=== PATIENT | male | born 1975 | race Caucasian/White ===

== ENCOUNTER 2018-06-09 13:52 | Emergency (ER) | payer MEDICAID ==
[~2018-06-09] VITALS: Ht 172.7 cm; Wt 70.0 kg
[~2018-06-09 13:52] MED LIST: CETI1TAB PO; FLUT16SP13 INH; IBUP-1986 PO; PSEU-250 PO
[2018-06-09] MEDS ORDERED: ketorolac trometh inj. 60 MG/2 ML VIAL IM ONE (15:30)
[2018-06-09] MEDS ORDERED: HYDROcodone/acetaminophen 10/325mg tab PO ONE (15:35)
[2018-06-09] MEDS ORDERED: CYCL-1 PO (15:44)
[2018-06-09] MEDS ORDERED: IBUP-1984 PO (15:44)
[2018-06-09 16:34] VITALS: BP 123/75
== END 2018-06-09 16:35 | disposition home or self-care (01) ==
LOC: ER 13:52
DX: M54.6 Pain in thoracic spine (principal); Z88.5 Allergy status to narcotic agent; Z79.899 Other long term (current) drug therapy
CPT/HCPCS: 96372; 99283; J1885

== ENCOUNTER 2018-12-15 14:23 | Emergency (ER) | payer MEDICAID ==
[~2018-12-15] VITALS: Ht 172.7 cm; Wt 72.7 kg
[~2018-12-15 14:23] MED LIST changes: +CYCL-1 PO
[2018-12-15 14:26] VITALS: BP 129/45
[2018-12-15] MEDS ORDERED: HYDROcodone/acetaminophen 10/325mg tab PO ONE (15:10)
[2018-12-15] MEDS ORDERED: ketorolac trometh inj. 60 MG/2 ML VIAL IM ONE (15:10)
[2018-12-15] MEDS ORDERED: NAPR-56 PO (15:11)
== END 2018-12-15 15:31 | disposition home or self-care (01) ==
LOC: ER 14:23
DX: S83.8X1A Sprain of other specified parts of right knee, initial encounter (principal); S80.211A Abrasion, right knee, initial encounter; Z79.899 Other long term (current) drug therapy; Z88.5 Allergy status to narcotic agent; X50.1XXA Overexertion from prolonged static or awkward postures, initial encounter; Y93.01 Activity, walking, marching and hiking; Y92.89 Other specified places as the place of occurrence of the external cause; Y99.9 Unspecified external cause status
CPT/HCPCS: 29505; 73564; 96372; 99284; J1885

== ENCOUNTER 2018-12-30 01:11 | Emergency (ER) | payer MEDICAID ==
[~2018-12-30] VITALS: Ht 172.7 cm; Wt 62.7 kg
[~2018-12-30 01:11] MED LIST changes: +NAPR-56 PO
[2018-12-30 01:16] VITALS: BP 164/101
[2018-12-30] MEDS ORDERED: AMOXICILLIN PO (01:58)
[2018-12-30] MEDS ORDERED: HYDR-4353 PO (02:00)
== END 2018-12-30 02:09 | disposition home or self-care (01) ==
LOC: ER 01:11
DX: K08.89 Other specified disorders of teeth and supporting structures (principal); Z88.6 Allergy status to analgesic agent
CPT/HCPCS: 99283

== ENCOUNTER 2019-01-11 13:21 | Outpatient (CLI) | payer MEDICAID ==
[2019-01-11 13:18] VITALS: BP 142/91
[~2019-01-11 13:21] MED LIST changes: +AMOXICILLIN PO; -CETI1TAB PO; -CYCL-1 PO; -FLUT16SP13 INH; +HYDR-4353 PO; -PSEU-250 PO
== END 2019-01-11 14:02 | disposition home or self-care (01) ==
LOC: ORTHO 13:21
PROVIDERS: ATTEND Nurse Practitioner Family
DX: S83.412A Sprain of medial collateral ligament of left knee, initial encounter (principal); S83.511A Sprain of anterior cruciate ligament of right knee, initial encounter; Z88.5 Allergy status to narcotic agent; Z79.899 Other long term (current) drug therapy; W01.0XXA Fall on same level from slipping, tripping and stumbling without subsequent striking against object, initial encounter; Y93.89 Activity, other specified; Y92.89 Other specified places as the place of occurrence of the external cause; Y99.8 Other external cause status
CPT/HCPCS: 99213

== ENCOUNTER 2019-01-22 11:31 | Emergency (ER) | payer MEDICAID ==
[~2019-01-22] VITALS: Ht 170.2 cm; Wt 72.7 kg
[~2019-01-22 11:31] MED LIST changes: -NAPR-56 PO
[2019-01-22 11:42] VITALS: BP 154/78
[2019-01-22] MEDS ORDERED: ondansetron 4mg rapidly disintigrating tab PO ONE (11:50)
[2019-01-22] MEDS ORDERED: LIDOcaine 1% w/epiNEPHrine 1:200,000 30ml vial IM ONE (11:50)
[2019-01-22] MEDS ORDERED: TETanus/Pertussis (Acell)/Diphther VAC/PF (Tdap-Adult) 0.5ml syringe IM ONE (11:50)
[2019-01-22] MEDS ORDERED: LORazepam 1 MG tablet PO ONE (13:10)
[2019-01-22] MEDS ORDERED: CEPH-572 PO (14:22)
[2019-01-22] MEDS ORDERED: HYDR-3965 PO (14:22)
[2019-01-22] MEDS ORDERED: ceFAZolin 1gm IM kit IM ONE (14:25)
== END 2019-01-22 14:48 | disposition home or self-care (01) ==
LOC: ER 11:31
DX: S61.314A Laceration without foreign body of right ring finger with damage to nail, initial encounter (principal); S61.212A Laceration without foreign body of right middle finger without damage to nail, initial encounter; Z56.0 Unemployment, unspecified; Z88.6 Allergy status to analgesic agent; W28.XXXA Contact with powered lawn mower, initial encounter; Y93.89 Activity, other specified; Y92.89 Other specified places as the place of occurrence of the external cause; Y99.8 Other external cause status
CPT/HCPCS: 11730; 12001; 73130; 90471; 90715; 96372; 99284; J0690; J3490

== ENCOUNTER 2019-01-25 08:53 | Emergency (ER) | payer MEDICAID ==
[~2019-01-25] VITALS: Ht 172.7 cm; Wt 72.7 kg
[~2019-01-25 08:53] MED LIST changes: +CEPH-572 PO; +HYDR-3965 PO
[2019-01-25 09:07] VITALS: BP 145/111
[2019-01-25] MEDS ORDERED: HYDR-4353 PO (09:09)
[2019-01-25] MEDS ORDERED: HYDROcodone/acetaminophen 10/325mg tab PO ONE (09:10)
[2019-01-25] MEDS ORDERED: ketorolac trometh inj. 60 MG/2 ML VIAL IM ONE (09:10)
== END 2019-01-25 09:18 | disposition home or self-care (01) ==
LOC: ER 08:53
DX: S61.212D Laceration without foreign body of right middle finger without damage to nail, subsequent encounter (principal); S61.214D Laceration without foreign body of right ring finger without damage to nail, subsequent encounter; F17.200 Nicotine dependence, unspecified, uncomplicated; Z88.5 Allergy status to narcotic agent; Z79.899 Other long term (current) drug therapy; Z56.0 Unemployment, unspecified; W31.89XD Contact with other specified machinery, subsequent encounter
CPT/HCPCS: 99283

== ENCOUNTER 2019-01-26 14:30 | Outpatient (CLI) | payer MEDICAID | END 2019-01-26 23:59 | disposition home or self-care (01) | LOC: RAD 14:30 | PROVIDERS: ATTEND Nurse Practitioner Family | DX: S83.511A Sprain of anterior cruciate ligament of right knee, initial encounter (principal); S83.412A Sprain of medial collateral ligament of left knee, initial encounter; M25.461 Effusion, right knee; X58.XXXA Exposure to other specified factors, initial encounter; Y93.89 Activity, other specified; Y92.89 Other specified places as the place of occurrence of the external cause; Y99.8 Other external cause status | CPT/HCPCS: 73721 ==